=== PATIENT | female | born 1980 | race Caucasian/White ===

== ENCOUNTER 2017-07-02 10:10 | Emergency (ER) | payer SELFPAY ==
[2017-07-02 10:14] VITALS: TEMP 97.2
[2017-07-02] MEDS ORDERED: methylPREDNISolone SOD SUCCI 125 MG/2 ML VIAL IV STA (10:19)
[2017-07-02] MEDS ORDERED: FAMOTIDINE 20 MG/2 ML VIAL IV STA (10:19)
[2017-07-02] MEDS ORDERED: SODIUM CHLORIDE 0.9% 1,000 ML IV STA (10:19)
--- NOTE | 2017-07-02 10:30 | ED ---
General Adult HPI - General Chief complaint: Allergic Reaction Stated complaint: Allergic reaction Time Seen by Provider: 07/02/17 10:16 Source: patient, RN notes reviewed Mode of arrival: ambulatory Limitations: no limitations - History of Present Illness Initial comments: 37-year-old female presents to the emergency department with a chief complaint of in ALLERGIC reaction. She states that she woke up this morning just covered in hives. She states that she felt some irritation and tightness in her throat. She took Benadryl and she states that it is seem to be getting better but she still covered with this rash. She got lightheaded when she saw the rash. She states that she just feels swollen and itchy. She denies any new soaps or detergents denies any new medications. She flew back from [place] last night. She states there is no different or changing foods. Patient was concerned due to her continued symptoms so she thought that she should be seen. Patient denies any recent fever, chills, shortness of breath, chest pain, back pain, abdominal pain, nausea vomiting, numbness or tingling, dysuria or hematuria, constipation or diarrhea, headaches or visual changes, or any other current symptoms. - Related Data Previous Rx's Medication Instructions Recorded Famotidine [Pepcid] 20 mg PO BID #10 tablet 07/02/17 diphenhydrAMINE [Benadryl] 50 mg PO HS PRN #5 capsule 07/02/17 predniSONE 50 mg PO DAILY #5 tab 07/02/17 Allergies Allergy/AdvReac Type Severity Reaction Status Date / Time No Known Allergies Allergy Verified 07/02/17 10:21 Review of Systems ROS Statement: Those systems with pertinent positive or pertinent negative responses have been documented in the HPI. ROS Other: All systems not noted in ROS Statement are negative. Past Medical History Past Medical History: No Reported History History of Any Multi-Drug Resistant Organisms: None Reported Past Surgical History: No Surgical Hx Reported Past Psychological History: No Psychological Hx Reported Smoking Status: Never smoker Past Alcohol Use History: None Reported Past Drug Use History: None Reported General Exam Limitations: no limitations General appearance: alert, in no apparent distress Head exam: Present: atraumatic, normocephalic, normal inspection Eye exam: Present: normal appearance, PERRL, EOMI. Absent: scleral icterus, conjunctival injection, periorbital swelling ENT exam: Present: normal exam, mucous membranes moist Neck exam: Present: normal inspection. Absent: tenderness, meningismus, lymphadenopathy Respiratory exam: Present: normal lung sounds bilaterally. Absent: respiratory distress, wheezes, rales, rhonchi, stridor Cardiovascular Exam: Present: regular rate, normal rhythm, normal heart sounds. Absent: systolic murmur, diastolic murmur, rubs, gallop, clicks Neurological exam: Present: alert, oriented X3 Psychiatric exam: Present: normal affect, normal mood Skin exam: Present: warm, dry, intact, normal color, rash, urticaria (Diffuse) Course Vital Signs 07/02/17 10:11 Temperature 97.2 F L Pulse Rate 123 H Respiratory 22 Rate Blood Pressure 133/98 O2 Sat by Pulse 98 Oximetry Medical Decision Making - Medical Decision Making 37-year-old female presents for an ALLERGIC reaction. This time the patient does not have any known changes at home or in the department. She does complain of some throat tightness that has improved with at-home Benadryl. At this time she was given Solu-Medrol and Pepcid and we did watch the patient. At this time patient's rash has completely resolved and she states she is feeling much better. This tenderness in her home with start her on steroids Pepcid and Benadryl for home. We did discuss searching house for causes. We discussed return parameters and follow-up and all questions. Patient stated that she understood and she is agreement this plan. She will be discharged. Disposition Clinical Impression: Allergic reaction Disposition: HOME SELF-CARE Condition: Stable Instructions: Anaphylaxis (ED) Additional Instructions: Please use medication as discussed. Please follow up with family doctor if symptoms have not improved over the next two days. Please return to the emergency room if your symptoms increase or worsen or for any other concerns. Prescriptions: diphenhydrAMINE [Benadryl] 50 mg PO HS PRN #5 capsule PRN Reason: Itching Famotidine [Pepcid] 20 mg PO BID #10 tablet predniSONE 50 mg PO DAILY #5 tab Referrals: Jose Daniel Gaffney DO [Doctor of Osteopathic Medicine] - 1-2 days Time of Disposition: 11:31
[2017-07-02 11:45] VITALS: BP 117/68; PULSE 93; RESP 20
== END 2017-07-02 11:45 | disposition home or self-care (01) ==
LOC: EC 10:10
DX: T78.40XA Allergy, unspecified, initial encounter (principal); R42 Dizziness and giddiness
CPT/HCPCS: 99282; 96374; 96375; 96361; J2930

== ENCOUNTER 2018-09-11 20:13 | Emergency (ER) | payer OTHER ==
[2018-09-11 20:25] VITALS: TEMP 98
[2018-09-11] MEDS ORDERED: LIDOCAINE 1% INJ 10MG/ML (20 ML MDV) SQ ONE (20:28)
[2018-09-11] MEDS ORDERED: LIDOCAINE 1%-EPI 1:100,000 20 ML VIAL SQ STA (20:34)
--- NOTE | 2018-09-11 20:36 | ED ---
General Adult HPI - General Chief complaint: Wound/Laceration Stated complaint: Leg laceration Time Seen by Provider: 09/11/18 20:24 Source: patient Mode of arrival: ambulatory Limitations: no limitations - History of Present Illness Initial comments: The patient is a 38-year-old female presents with chief complaint a laceration to the anterior left thigh. She was using an angle stopper grinder on the floor when it slipped and hit her leg. Patient states that she has pain with movement of the skin, otherwise she is ambulatory and does not have pain bearing weight. She does not know when her last tetanus shot was. She does not have any known ALLERGIES, no other medical history. - Related Data Home Medications Medication Instructions Recorded Confirmed Ibuprofen [Motrin Ib] 400 mg PO Q6H 09/11/18 09/11/18 Allergies Allergy/AdvReac Type Severity Reaction Status Date / Time No Known Allergies Allergy Verified 09/11/18 20:43 Review of Systems ROS Statement: Those systems with pertinent positive or pertinent negative responses have been documented in the HPI. ROS Other: All systems not noted in ROS Statement are negative. Past Medical History Past Medical History: No Reported History History of Any Multi-Drug Resistant Organisms: None Reported Past Surgical History: No Surgical Hx Reported Past Psychological History: No Psychological Hx Reported Smoking Status: Never smoker Past Alcohol Use History: None Reported Past Drug Use History: None Reported General Exam Limitations: no limitations General appearance: alert, in no apparent distress Head exam: Present: atraumatic, normocephalic Eye exam: Present: normal appearance. Absent: PERRL, EOMI ENT exam: Present: normal exam Neck exam: Present: normal inspection Respiratory exam: Present: normal lung sounds bilaterally. Absent: respiratory distress, wheezes Cardiovascular Exam: Present: regular rate, normal rhythm GI/Abdominal exam: Present: soft. Absent: distended, tenderness Rectal exam: Present: deferred Extremities exam: Present: normal inspection, other Back exam: Present: normal inspection Neurological exam: Present: alert, oriented X3 Psychiatric exam: Present: normal affect, normal mood Skin exam: Present: warm, dry, other (Patient has a 5 cm linear laceration to the anterior left thigh, it is through the adipose tissue, there is no muscular or tendon involvement.) Course Vital Signs 09/11/18 20:23 Temperature 98 F Pulse Rate 113 H Respiratory 20 Rate Blood Pressure 139/71 O2 Sat by Pulse 98 Oximetry Procedures - Laceration Laceration #1 Consent Obtained: verbal consent Indication: laceration Site: lower extremity Description: linear Depth: simple, single layer Anesthetic Used: lidocaine 1%, with epi Anesthesia Technique: local infiltration Pre-repair: wound explored, irrigated extensively Type of Sutures: nylon, vicryl Size of Sutures: 5-0 Number of Sutures: 16 Technique: simple, interrupted Patient Tolerated Procedure: well Additional Comments: 7 cm in length, deep through fat tissue, undermined with running vicryl suture, 16 simple interrupted 5-0 nylon to close skin. Medical Decision Making - Medical Decision Making Patient presents with a chief complaint of a laceration to the anterior left leg. This happened on accident with a corner temo. Laceration was repaired per the procedure note, patient's tetanus status was updated. She was instructed of the sutures removed in 7 days, do not soak the area, wash as normal, and she was given specific signs and symptoms that should prompt im mediate return to the emergency department. Follow-up with primary care in 1-2 days, return to ED if symptoms worsen or change. Disposition Clinical Impression: Laceration Disposition: HOME SELF-CARE Condition: Good Instructions (If sedation given, give patient instructions): Care For Your Stitches (DC) Is patient prescribed a controlled substance at d/c from ED?: No Referrals: None,Stated [Primary Care Provider] - 1-2 days Katia Rosales MD [STAFF PHYSICIAN] - 1-2 days
[2018-09-11] MEDS ORDERED: DIPH,PERTUS(ACELL)TETVAC-LF 0.5 ML VIAL IM ONE (20:46)
--- NOTE | 2018-09-11 21:05 | XR ---
EXAMINATION TYPE: XR femur LT DATE OF EXAM: 09/11/2018 COMPARISON: NONE HISTORY: Laceration TECHNIQUE: 4 views FINDINGS: The hip joint and knee joint appear intact. I see no fracture nor dislocation. There are no pathologic calcifications. There is soft tissue possible transverse defect over the lower thigh on t he medial aspect that could be a laceration. IMPRESSION: No bony abnormality. No sign of a foreign body. Possible laceration deformity.
[2018-09-11 22:16] VITALS: BP 130/85; PULSE 65; RESP 18
== END 2018-09-11 22:13 | disposition home or self-care (01) ==
LOC: EC 20:13
DX: S71.112A Laceration without foreign body, left thigh, initial encounter (principal); Z53.8 Procedure and treatment not carried out for other reasons; Z23 Encounter for immunization; Z79.1 Long term (current) use of non-steroidal anti-inflammatories (NSAID); W22.8XXA Striking against or struck by other objects, initial encounter; Y92.009 Unspecified place in unspecified non-institutional (private) residence as the place of occurrence of the external cause
CPT/HCPCS: 12032; 90471; 90715; 99283